=== PATIENT | female | born 1985 | race Native Hawaiian/Other Pacific Islander ===

== ENCOUNTER 2016-11-01 17:18 | Emergency (ER) | payer OTHER, MEDICAID ==
[2016-11-01 17:44] VITALS: BMI 29.2
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
== END 2016-11-01 18:21 | disposition home or self-care (01) ==
LOC: H.EROB2 17:18
DX: O47.03 False labor before 37 completed weeks of gestation, third trimester (principal); Z3A.35 35 weeks gestation of pregnancy

== ENCOUNTER 2016-12-06 06:54 | Inpatient (IN) | payer MEDICAID, OTHER ==
[2016-12-06 08:19] VITALS: BMI 31.1
[2016-12-06] MEDS: Lactated Ringer's 1,000 ML IV SCH ×3 (08:50→21:33)
[2016-12-06] MEDS ORDERED: Nalbuphine 20 mg/ml Inj (1 ml) IVP ONE (09:00)
--- NOTE | 2016-12-06 09:16 | OBADHP ---
Datetime: 12/06/2016 08:15 Admit Comment, IP Provider: IUP at 40w c/o CTX pain. No SROM. No VB. +FM. She had mucous plu g come out yesterday. POBGYNH: TOP x 2; MSVD x 1 PMH denies PSH miguel NKA PSoH denies smoking ETOH drugs A: IUP at 40w Painful CTX early labor PLAN: discussion with pt about labor, pain medication, delivery and . She udnerstands. She wants pain medicaton and admission for delivery Pelvic Type - PN: Adequate Extremities - PN: Normal Abdomen - PN: Normal Back - PN: Normal Breast - PN: Not Done Lungs - PN: Normal Heart - PN: Normal Thyroid - PN: Normal Neurologic - PN: Normal HEENT - PN: Normal General - PN: Normal Presentation-Admit: Vertex FHR - Baseline A Provider: 120 Comments, ACOG Physical Exam: ROS: Geneeral no weakness; no fatigue HEENT: No OBRIEN; no visual dist Resp: No SOB; no Cough CV: NO CP; no palpitations GI: No N/V/D : No F/U/D MS: NO joint pain Pool Provider: Negative IP Hx Assessment: The History has been Reviewed and is Current Vital Signs Provider: Reviewed; Within Normal Limits IP Chief Complaint: Uterine contractions NICHD Variability Prov Fetus A: Moderate 6-25bpm FHR Category Provider Fetus A: Category I NICHD Decel Fetus A IP Provider: None Dilatation, Provider: 1 Effacement, Provider: 50 Station, Provider: -2 Genitourinary Exam: Normal DTRs - PN: Normal EGA AdmitDate IP: 40.3 IP Adm Impression: Term, intrauterine IP Admit Plan: Admit to unit; Initiate labor protocol Datetime: 11/20/2016 04:11 IP Chief Complaint Other: perineal pressure Contraction Comments Provider: no NICHD Accel Fetus A IP Provider: 15X15 Datetime: 11/01/2016 18:15 Membranes, Provider: Intact
[2016-12-06 10:07] LABS: HEMATOCRIT 38.2 % (34.0-47.0); MEAN CELL VOLUME 91.5 fl (81.0-99.0); MEAN CORPUSCULAR HEMOGLOBIN 29.8 pg (27.0-31.0); MEAN CORPUSCULAR HGB CONC 32.6 g/dL (33.0-37.0); RED CELL DISTRIBUTION WIDTH 14.2 % (11.5-14.5); WHITE BLOOD COUNT 15.8 K/uL (4.8-10.8)
--- NOTE | 2016-12-06 10:32 | OBPN ---
Datetime: 12/06/2016 10:29 IP Progress Impression: Normal progression of labor; Reassuring heart rate IP Informed Consent Obtain: Vaginal Delivery; Risks, Benefits and Alternatives Discussed IP Procedures: Artificial ROM IP Progress Plan: Continue present management; Augmentation Pool Provider: Negative Membranes, Provider: Ruptured Amniotic Fluid Color, Provider: Clear FHR - Baseline A Provider: 125 IP Fetus A Comments: Sono cephalic Presentation-Admit: Vertex IP Progress Note Comment: She feels more pain. She is just getting Nubain now. SVE 1-2cm ASSESSMENT: latent phase of labor PLAN: AROM clear fluid nubain IV; augmentation with Pitocin discussed NICHD Accel Fetus A IP Provider: 15X15 FHR Category Provider Fetus A: Category I NICHD Variability Prov Fetus A: Moderate 6-25bpm Dilatation, Provider: 1-2 Effacement, Provider: 80 Station, Provider: -1 NICHD Decel Fetus A IP Provider: None Datetime: 12/06/2016 08:15 Vital Signs Provider: Reviewed; Within Normal Limits Datetime: 11/20/2016 04:11 Contraction Comments Provider: no
[2016-12-06 10:50] VITALS: BP 113/78; PULSE 78; RESP 18; TEMP 98; O2SAT 100
[2016-12-06] MEDS ORDERED: Oxytocin 30 units/LR 500ML 30 U/500 ML BAG IV ONE (12:34)
[2016-12-06] MEDS ORDERED: Lactated Ringer's 1,000 ML IV SCH (12:45)
[2016-12-06] MEDS ORDERED: Fentanyl/Bupivacaine HCl 250 ML EPI ONE (13:58)
[2016-12-06] MEDS ORDERED: Lidocaine 2% Inj (20ml) ONE (16:52)
--- NOTE | 2016-12-06 18:58 | OBPN ---
Datetime: 12/06/2016 18:50 IP Progress Impression: Reassuring heart rate IP Informed Consent Obtain: Vaginal Delivery; Risks, Benefits and Alternatives Discussed IP Procedures: Intrauterine Pressure Catheter IP Progress Plan: Continue present management; Augmentation FHR - Baseline A Provider: 135 Presentation-Admit: Vertex IP Progress Note Comment: Notified earlier that she was 7cm at 16:15pm...and 8cm at 18:00pm. She mcgee d Pitocin started at 2miu/h...noww at 4miu/h. CTX q 2-3m...SVE by dc 6-7cm 90% 0 station...IUPC placed to better monitor TCX intensity Vital Signs Provider: Reviewed; Within Normal Limits NICHD Accel Fetus A IP Provider: 15X15 FHR Category Provider Fetus A: Category I NICHD Variability Prov Fetus A: Moderate 6-25bpm Dilatation, Provider: 6-7 Effacement, Provider: 90 Station, Provider: 0 NICHD Decel Fetus A IP Provider: None
[2016-12-07] MEDS ORDERED: ceFAZolin 2 GM in Sodium Chloride 0.9% 100 ML IVPB ONE (01:33)
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
[2016-12-07] MEDS ORDERED: Absorbable Gelatin Sponge Size 12-7 ONE (02:45)
[2016-12-07] MEDS ORDERED: Morphine 1 mg/ml preservative-free Inj(Duramorph) ONE (02:55)
[2016-12-07] MEDS ORDERED: Oxycodone/Acetaminophen 5/325 mg Tab PO PRN ×3 (03:12→11:03)
[2016-12-07] MEDS ORDERED: Oxytocin 30 units/LR 500ML 30 U/500 ML BAG IV ONE (03:45)
[2016-12-07] MEDS ORDERED: DiphenhydrAMINE 50 mg/ml Inj IVP PRN ×2 (07:16→11:03)
[2016-12-07] MEDS ORDERED: Prenatal Multivit/Folic Acid/Iron Tab PO SCH (09:00)
[2016-12-07] MEDS ORDERED: Lactated Ringer's 1,000 ML IV SCH (11:03)
--- NOTE | 2016-12-07 14:40 | OBDS ---
DELIVERY PERSONNEL Delivery Doctor: Srikanth Hu DO Verify Rep: Cecilia Posada RN Anesthesiologist: mark anthony BABIN Resident: Brenden Clayton MD MATERNAL INFORMATION Delivery Anesthesia: Epidural Medications in Delivery: pitocin 30/500, pit, ancef 2 grams, methergine Estimated Blood Loss (ml): 1000 Placenta Cultured: No Maternal Complications: None RN Comments: DC IUP in OR as per md and pt tolerated procedure well. Methergine given left arm IM as per md order and pt tolerated well Provider Comments: Pre Op Dx: IUP at term/failure to dilate Post Op Dx: same; one loose nuchal cord; uterine atony Procedure: Primary LTCS via Pfannenstiel incision Surgeon Dr Hu Asst: Dr Oshea PGY1 Anesth: Dr Iverson Anesth: epidural Findings: -Live infant male delivered from [facility] presentation -loose nichal cord x 1 -clear AF -placenta delivered intact manually -Uterine atony (Methergine given) - 9,9 She remained stable EBL 1000cc - LABOR SUMMARY EDC: 12/03/2016 00:00 No. Babies in Womb: 1 Attempted: No Labor Anesthesia: Epidural LABOR INFORMATION Reason for Induction: Not Applicable Onset of Labor: 12/06/2016 04:00 Oxytocin: Augmentation Group B Beta Strep: Negative Antibiotics # of Doses: none Antibiotics Time of Last Dose: n/a Steroids Given: None Reason Steroids Not Administered: Not Applicable MEMBRANES Membranes Rupture Method: Artificial Rupture of Membranes: 12/06/2016 10:26 Length of Rupture (hrs): 16.00 Amniotic Fluid Color: Clear Amniotic Fluid Amount: Moderate Amniotic Fluid Odor: Normal STAGES OF LABOR Stage 3 hrs: 0 Stage 3 min: 1 Total Time in Labor hrs: 22 Total Time in Labor min: 27 VAGINAL DELIVERY Episiotomy: None Laceration Extension: N/A Laceration Type: None Laceration Repair: Not Applicable Sponge Count Correct: N/A CSECTION DELIVERY Primary Indication: Secondary Arrest of Dilatation CSection Urgency: Elective CSection Incidence: Primary Labor: Labor Elective: Elective CSection Incision: Lower Uterine Transverse BABY A INFORMATION Infant Delivery Date/Time: 12/07/2016 02:26 Method of Delivery: Born in Route : No : N/A Forceps: N/A Vacuum Extraction: N/A Shoulder Dystocia : No SHOULDER DYSTOCIA BABY A Infant Delivery Date/Time: 12/07/2016 02:26 PRESENTATION/POSITION BABY A Presentation: Cephalic Cephalic Presentation: Vertex Breech Presentation: N/A PLACENTA INFORMATION BABY A Placenta Delivery Time : 12/07/2016 02:27 Placenta Method of Delivery: Manual Removal Placenta Status: Delivered SCORES BABY A Heart Rate 1 min: >100 bpm Resp Effort 1 min: Good Cry Reflex Irritability 1 min: Cough or Sneeze or Pulls Away Muscle Tone 1 min: Active Motion Color 1 min: Body [place], Extremities Blue Resuscitation Effort 1 min: N/A SCORE 1 MIN: 9 Heart Rate 5 min: >100 bpm Resp Effort 5 min: Good Cry Reflex Irritability 5 min: Cough or Sneeze or Pulls Away Muscle Tone 5 min: Active Motion Color 5 min: Body [place], Extremities Blue Resuscitation Effort 5 min: N/A SCORE 5 MIN: 9 INFORMATION BABY A Gestational Age at Delivery: 40.3 Gestational Status: Term Outcome : Liveborn Condition : Stable Sex: Male IDENTIFICATION/MEDS BABY A ID Band Number: [id number] ID Band Location: Left Leg; Left Arm WEIGHT/LENGTH BABY A Infant Birthweight (gms): 3980 Infant Weight (lb): 8 Weight (oz): 12 Length Inches: 21.25 Infant Length cms: 54.0 CORD INFORMATION BABY A No. Cord Vessels: 3 Nuchal Cord : Around Neck x1, Loose True Knot: none Cord Blood Taken: Yes Suction: Mouth; Nose ASSESSMENT BABY A Infant Complications: None Physical Findings at Delivery: Within Normal Limits Infant Respirations: Appears Normal Lift Truck Operator/ALS Called : No Infant Care By: Dr Kumar Transferred To: Nursery
--- NOTE | 2016-12-07 14:41 | OBDS ---
DELIVERY PERSONNEL Delivery Doctor: Srikanth Hu DO Supervisor Rose Grading: Cecilia Posada RN Anesthesiologist: mark anthony BABIN Resident: Brenden Clayton MD MATERNAL INFORMATION Delivery Anesthesia: Epidural Medications in Delivery: pitocin 30/500, pit, ancef 2 grams, methergine Estimated Blood Loss (ml): 1000 Placenta Cultured: No Maternal Complications: None RN Comments: DC IUP in OR as per md and pt tolerated procedure well. Methergine given left arm IM as per md order and pt tolerated well Provider Comments: Pre Op Dx: IUP at term/failure to dilate Post Op Dx: same; one loose nuchal cord; uterine atony Procedure: Primary LTCS via Pfannenstiel incision Surgeon Dr Hu Asst: Dr Oshea PGY1 Anesth: Dr Iverson Anesth: epidural Findings: -Live infant male delivered from [facility] presentation -loose nichal cord x 1 -clear AF -placenta delivered intact manually -Uterine atony (Methergine given) - 9,9 She remained stable EBL 1000cc - LABOR SUMMARY EDC: 12/03/2016 00:00 No. Babies in Womb: 1 Attempted: No Labor Anesthesia: Epidural LABOR INFORMATION Reason for Induction: Not Applicable Onset of Labor: 12/06/2016 04:00 Oxytocin: Augmentation Group B Beta Strep: Negative Group B Beta Strep: Negative Antibiotics # of Doses: none Antibiotics Time of Last Dose: n/a Steroids Given: None Reason Steroids Not Administered: Not Applicable MEMBRANES Membranes Rupture Method: Artificial Membranes Rupture Method: Artificial Membranes Rupture Method: Artificial Membranes Rupture Method: Artificial Membranes Rupture Method: Artificial Membranes Rupture Method: Artificial Membranes Rupture Method: Artificial Membranes Rupture Method: Artificial Membranes Rupture Method: Artificial Membranes Rupture Method: Artificial Membranes Rupture Method: Artificial Membranes Rupture Method: Artificial Membranes Rupture Method: Artificial Membranes Rupture Method: Artificial Membranes Rupture Method: Artificial Membranes Rupture Method: Artificial Membranes Rupture Method: Artificial Membranes Rupture Method: Artificial Membranes Rupture Method: Artificial Membranes Rupture Method: Artificial Membranes Rupture Method: Artificial Membranes Rupture Method: Artificial Membranes Rupture Method: Artificial Membranes Rupture Method: Artificial Membranes Rupture Method: Artificial Membranes Rupture Method: Artificial Membranes Rupture Method: Artificial Membranes Rupture Method: Artificial Membranes Rupture Method: Artificial Membranes Rupture Method: Artificial Membranes Rupture Method: Artificial Membranes Rupture Method: Artificial Rupture of Membranes: 12/06/2016 10:26 Length of Rupture (hrs): 16.00 Amniotic Fluid Color: Clear Amniotic Fluid Color: Clear Amniotic Fluid Color: Clear Amniotic Fluid Color: Clear Amniotic Fluid Color: Clear Amniotic Fluid Color: Clear Amniotic Fluid Color: Clear Amniotic Fluid Color: Clear Amniotic Fluid Color: Clear Amniotic Fluid Color: Clear Amniotic Fluid Color: Clear Amniotic Fluid Color: Clear Amniotic Fluid Color: Clear Amniotic Fluid Color: Clear Amniotic Fluid Color: Clear Amniotic Fluid Color: Clear Amniotic Fluid Color: Clear Amniotic Fluid Color: Clear Amniotic Fluid Color: Clear Amniotic Fluid Color: Clear Amniotic Fluid Color: Clear Amniotic Fluid Color: Clear Amniotic Fluid Color: Clear Amniotic Fluid Color: Clear Amniotic Fluid Color: Clear Amniotic Fluid Color: Clear Amniotic Fluid Color: Clear Amniotic Fluid Color: Clear Amniotic Fluid Color: Clear Amniotic Fluid Color: Clear Amniotic Fluid Color: Clear Amniotic Fluid Color: Clear Amniotic Fluid Amount: Moderate Amniotic Fluid Amount: Moderate Amniotic Fluid Amount: Moderate Amniotic Fluid Amount: Moderate Amniotic Fluid Amount: Moderate Amniotic Fluid Amount: Moderate Amniotic Fluid Amount: Moderate Amniotic Fluid Amount: Moderate Amniotic Fluid Amount: Moderate Amniotic Fluid Amount: Moderate Amniotic Fluid Amount: Moderate Amniotic Fluid Amount: Moderate Amniotic Fluid Amount: Moderate Amniotic Fluid Amount: Moderate Amniotic Fluid Amount: Moderate Amniotic Fluid Amount: Moderate Amniotic Fluid Amount: Moderate Amniotic Fluid Amount: Moderate Amniotic Fluid Amount: Moderate Amniotic Fluid Amount: Moderate Amniotic Fluid Amount: Moderate Amniotic Fluid Amount: Moderate Amniotic Fluid Amount: Moderate Amniotic Fluid Amount: Moderate Amniotic Fluid Amount: Moderate Amniotic Fluid Amount: Moderate Amniotic Fluid Amount: Moderate Amniotic Fluid Amount: Moderate Amniotic Fluid Amount: Moderate Amniotic Fluid Amount: Moderate Amniotic Fluid Amount: Moderate Amniotic Fluid Amount: Moderate Amniotic Fluid Odor: Normal Amniotic Fluid Odor: Normal Amniotic Fluid Odor: Normal Amniotic Fluid Odor: Normal Amniotic Fluid Odor: Normal Amniotic Fluid Odor: Normal Amniotic Fluid Odor: Normal Amniotic Fluid Odor: Normal Amniotic Fluid Odor: Normal Amniotic Fluid Odor: Normal Amniotic Fluid Odor: Normal Amniotic Fluid Odor: Normal Amniotic Fluid Odor: Normal Amniotic Fluid Odor: Normal Amniotic Fluid Odor: Normal Amniotic Fluid Odor: Normal Amniotic Fluid Odor: Normal Amniotic Fluid Odor: Normal Amniotic Fluid Odor: Normal Amniotic Fluid Odor: Normal Amniotic Fluid Odor: Normal Amniotic Fluid Odor: Normal Amniotic Fluid Odor: Normal Amniotic Fluid Odor: Normal Amniotic Fluid Odor: Normal Amniotic Fluid Odor: Normal Amniotic Fluid Odor: Normal Amniotic Fluid Odor: Normal Amniotic Fluid Odor: Normal Amniotic Fluid Odor: Normal Amniotic Fluid Odor: Normal Amniotic Fluid Odor: Normal STAGES OF LABOR Stage 3 hrs: 0 Stage 3 min: 1 Total Time in Labor hrs: 22 Total Time in Labor min: 27 VAGINAL DELIVERY Episiotomy: None Laceration Extension: N/A Laceration Type: None Laceration Repair: Not Applicable Sponge Count Correct: N/A CSECTION DELIVERY Primary Indication: Secondary Arrest of Dilatation CSection Urgency: Elective CSection Incidence: Primary Labor: Labor Elective: Elective CSection Incision: Lower Uterine Transverse BABY A INFORMATION Delivery Date/Time: 12/07/2016 02:26 Method of Delivery: Method of Delivery: Vaginal Born in Route : No : N/A Forceps: N/A Vacuum Extraction: N/A Shoulder Dystocia : No SHOULDER DYSTOCIA BABY A Delivery Date/Time: 12/07/2016 02:26 PRESENTATION/POSITION BABY A Presentation: Cephalic Presentation: Cephalic Presentation: Cephalic Presentation: Cephalic Presentation: Cephalic Cephalic Presentation: Vertex Breech Presentation: N/A PLACENTA INFORMATION BABY A Placenta Delivery Time : 12/07/2016 02:27 Placenta Method of Delivery: Manual Removal Placenta Status: Delivered SCORES BABY A Heart Rate 1 min: >100 bpm Resp Effort 1 min: Good Cry Reflex Irritability 1 min: Cough or Sneeze or Pulls Away Muscle Tone 1 min: Active Motion Color 1 min: Body [place], Extremities Blue Resuscitation Effort 1 min: N/A SCORE 1 MIN: 9 Heart Rate 5 min: >100 bpm Resp Effort 5 min: Good Cry Reflex Irritability 5 min: Cough or Sneeze or Pulls Away Muscle Tone 5 min: Active Motion Color 5 min: Body [place], Extremities Blue Resuscitation Effort 5 min: N/A SCORE 5 MIN: 9 INFANT INFORMATION BABY A Gestational Age at Delivery: 40.3 Gestational Status: Term Infant Outcome : Liveborn Infant Condition : Stable Sex: Male IDENTIFICATION/MEDS BABY A ID Band Number: [id number] ID Band Location: Left Leg; Left Arm WEIGHT/LENGTH BABY A Birthweight (gms): 3980 Weight (lb): 8 Infant Weight (oz): 12 Infant Length Inches: 21.25 Length cms: 54.0 CORD INFORMATION BABY A No. Cord Vessels: 3 Nuchal Cord : Around Neck x1, Loose True Knot: none Cord Blood Taken: Yes Suction: Mouth; Nose ASSESSMENT BABY A Complications: None Physical Findings at Delivery: Within Normal Limits Infant Respirations: Appears Normal Java Architect/ALS Called : No Care By: Dr Kumar Transferred To: Nursery
[2016-12-07 16:25] LABS: HEMATOCRIT 23.8 % (34.0-47.0); MEAN CELL VOLUME 91.2 fl (81.0-99.0); MEAN CORPUSCULAR HEMOGLOBIN 31.4 pg (27.0-31.0); MEAN CORPUSCULAR HGB CONC 34.4 g/dL (33.0-37.0); RED CELL DISTRIBUTION WIDTH 14.2 % (11.5-14.5); WHITE BLOOD COUNT 22.1 K/uL (4.8-10.8)
[2016-12-07] MEDS: Oxycodone/Acetaminophen 5/325 mg Tab PO PRN (20:55)
[2016-12-08] MEDS: Prenatal Multivit/Folic Acid/Iron Tab PO SCH (08:23)
[2016-12-08] MEDS: Oxycodone/Acetaminophen 5/325 mg Tab PO PRN ×2 (11:19→20:35)
[2016-12-08 12:27] LABS: HEMATOCRIT 24.9 % (34.0-47.0); MEAN CELL VOLUME 92.2 fl (81.0-99.0); MEAN CORPUSCULAR HEMOGLOBIN 30.4 pg (27.0-31.0); RED CELL DISTRIBUTION WIDTH 14.6 % (11.5-14.5); WHITE BLOOD COUNT 24.9 K/uL (4.8-10.8)
--- NOTE | 2016-12-08 19:17 | OBPPN ---
Datetime: 12/08/2016 19:13 PP Pain Prov: Within normal limits PP Nausea Prov: Denies PP Flatus Prov: Yes PP Breasts Prov: Normal PP Heart Prov: Normal PP Lungs Prov: Normal PP Abdomen/Uterus Prov: Normal PP Lochia Prov: Normal PP Vulva/Perineum Prov: Normal PP CVA Tenderness Prov: Normal PP Extremities Prov: Normal PP C/S Incision Prov: Normal PP Progress Prov: Normal PP Comments Phys Exam Prov: Incision clean, dry, intact. Uterus firm, below umbilicus No deep calf tenderness bilaterally PP Impression Prov: Normal progression PP Plan Prov: Continue present management PP Progress Note Prov: Postoperative #1 status post primary , recovering well, no clinical symptoms of anemia Postoperative CBC Regular diet Early ambulation Lou out, patient voiding well consultation IP PP Procedures: None Vital Signs Provider PP: Reviewed; Within Normal Limits Datetime: 12/07/2016 14:30 PP Pain Prov comment: NO dizziness PP BM Prov: No IP PP Procedures Comments: CBC today
[2016-12-09] MEDS: Oxycodone/Acetaminophen 5/325 mg Tab PO PRN ×2 (08:22→17:00)
[2016-12-09] MEDS: Prenatal Multivit/Folic Acid/Iron Tab PO SCH (08:26)
--- NOTE | 2016-12-09 12:08 | OBPPN ---
Datetime: 12/09/2016 11:53 PP Pain Prov: Within normal limits PP Nausea Prov: Denies PP Flatus Prov: Yes PP Breasts Prov: Normal PP Heart Prov: Normal PP Lungs Prov: Normal PP Abdomen/Uterus Prov: Normal PP Lochia Prov: Normal PP Vulva/Perineum Prov: Normal PP CVA Tenderness Prov: Normal PP Extremities Prov: Normal PP Comments Phys Exam Prov: Fundus firm under umbilicus Incision clean/dry/intact PP Impression Prov: Normal progression PP Plan Prov: Continue present management PP Progress Note Prov: Patient denies CP, no SOB, no N/V, tolerating PO diet, ambulating/voiding wel l, mild lochia, abdominal pain tolerable with meds, +flatus, no BM A/P POD #2 1. Patient doing well, asymptomatic. Continue reg diet 2. Percocet/Motrin prn pain 3. Colace prn constipation 4. Encourage ambulation/ IP PP Procedures: None Vital Signs Provider PP: Reviewed; Within Normal Limits
[2016-12-10] MEDS: Prenatal Multivit/Folic Acid/Iron Tab PO SCH (08:12)
--- NOTE | 2016-12-10 11:04 | OBPPN ---
Datetime: 12/10/2016 10:52 PP Pain Prov: Within normal limits PP Nausea Prov: Denies PP Flatus Prov: Yes PP BM Prov: No PP Breasts Prov: Normal PP Heart Prov: Normal PP Lungs Prov: Normal PP Abdomen/Uterus Prov: Normal PP Lochia Prov: Normal PP Vulva/Perineum Prov: Normal PP CVA Tenderness Prov: Normal PP Extremities Prov: Normal PP C/S Incision Prov: Normal PP Impression Prov: Normal progression PP Plan Prov: Discharge PP Progress Note Prov: She feels fine...EPDS 12 (awaiting social service consult) A: S/P C/S day 3 Anemia - will give Fe Dulcolax supp...dicshagre when cleared IP PP Procedures: None Vital Signs Provider PP: Reviewed; Within Normal Limits
--- NOTE | 2016-12-11 19:08 | OP ---
PROCEDURE DATE: 12/07/2016 PREOPERATIVE DIAGNOSES: 1. Intrauterine at full term. 2. Failure to dilate. POSTOPERATIVE DIAGNOSES: 1. Intrauterine at full term. 2. Failure to dilate. 3. One loose nuchal cord. 4. Uterine atony. PROCEDURE: Primary low transverse section via Pfannenstiel incision. SURGEON: Darrius Hu DO. PROMOTIONS OFFICER: Dr. Oshea, PGY-1. ANESTHESIOLOGIST: Dr. Negrete. ANESTHESIA: Epidural. OPERATIVE FINDINGS: Live male delivered from a cephalic presentation, 1 loose nuchal cord noted. Clear amniotic fluid noted. Placenta was delivered intact manually. Uterine atony was noted. Methergine 0.2 mg IM was given intraoperatively. scores were 9 and 9 given at 1 and 5 minutes respectively. She remained hemodynamically stable throughout the procedure. BLOOD LOSS: 1000 mL DESCRIPTION OF PROCEDURE: The patient was brought to the operating room. She had an indwelling Lou catheter in place. She was placed in a supine position. Compression boots were placed on both lower extremities. She was then draped and prepped in the usual sterile manner. Once adequate anesthesia was obtained, a Pfannenstiel incision was made using a scalpel. This incision was then taken down to underlying fascia using electrocautery. The incision was made on the fascia using electrocautery and extended bilaterally. Inferior aspect of the fascia was grasped using 2 Mehul clamps and tented up, and the rectus muscle was both bluntly and sharply dissected using electrocautery. The same was done with the superior aspect of the fascia. In the midline superiorly , the rectus muscle was bluntly. Peritoneum was identified and this was tented up using 2 Matilde clamps and incised using Metzenbaum scissors and the incision was then extended superiorly and inferiorly with direct visualization of the bladder and intestines. Bladder blade was then inserted. Two wet lap pads were placed on the pericolic gutters. An incision was made above the bladder line on the peritoneum and then extended bilaterally using Metzenbaum scissors. Bladder flap was created digitally. Bladder blade was then inserted behind the bladder flap. A low transverse incision was made using a scalpel. Upon entering the uterus, clear amniotic fluid was noted. This incision was then extended bilaterally using bandage scissors. Thereafter , the head was delivered as atraumatically as possible. Infant was bulb suctioned nasopharyngeally. One loose nuchal cord was noted and reduced. The remainder of the was then delivered as atraumatically as possible. Cord was clamped and cut. was shown to the mother and given to the boiler operators supervisor in attendance. Cord bloods were obtained. The placenta was then delivered intact manually. Uterus was noted to be boggy and atony noted. IV Pitocin given. Massage was done on the uterus. Uterine atony still noted, 0.2 mg of Methergine was given by Dr. Negrete after blood pressure was noted. Good contract of the uterus was noted. The lower uterine segment was identified and grasped using T clamps and Allises. 0 Vicryl suture was used to close the first layer of the uterus in interlocking fashion. Second layer of the uterus was closed using 0 Vicryl suture imbricating the first layer also in an interlocking fashion. Hemostasis was assured on the incision site. Posterior cul-de-sac was noted to be cleared of debris and clots. Uterus placed back into peritoneal cavity. Lap pads were removed. Irrigation was performed. Some bleeding was noted on the edge of the bladder flap. Hemostasis was assured using electrocautery, also underneath the bladder flap Gelfoam x 1 was placed on the left side. After hemostasis assured, all equipment was removed and accounted for, 0 Vicryl suture was then used to approximate the peritoneum in a running fashion. Rectus muscle was noted to have good hemostasis. 0 Vicryl suture was used to approximate the fascia in a running fashion. Irrigation was performed. Subcuticular layer was assured with hemostasis using electrocautery. 2-0 plain suture was used to approximate the subcuticular layer x 3, 3-0 Vicryl suture on a Jatin needle was used to approximate the skin. Dermabond was applied, pressure bandage and Steri-Strips placed. All equipment was removed and accounted for. ESTIMATED BLOOD LOSS: 1000 mL. Postoperatively, she was brought to the recovery room in stable condition. We will check CBC, blood count in 12 hours. Darrius Hu DO cc: 135 TT: 12/11/2016 19:07:45 jn REJI
== END 2016-12-10 16:00 | disposition home or self-care (01) | DRG 371 ==
LOC: H.EROB2 06:54 → H.EROB 08:33 → H.L&D 10:00 → H.OB/GYN 12-07 09:45
PROVIDERS: ADMIT Obstetrics & Gynecology; ATTEND Obstetrics & Gynecology
PROC: 4A1HXCZ Monitoring of Products of Conception, Cardiac Rate, External Approach (ICD-10-PCS; 2016-12-06)
PROC: 10D00Z1 Extraction of Products of Conception, Low, Open Approach (ICD-10-PCS; principal; 2016-12-07)
DX: O66.9 Obstructed labor, unspecified (principal); O48.0 Post-term pregnancy; Z37.0 Single live birth; Z3A.40 40 weeks gestation of pregnancy; O69.81X0 Labor and delivery complicated by cord around neck, without compression, not applicable or unspecified; O62.2 Other uterine inertia

== ENCOUNTER 2017-02-10 15:17 | Emergency (ER) | payer MEDICAID, OTHER ==
[2017-02-10 15:17] VITALS: BMI 31.1
[2017-02-10 15:29] VITALS: PULSE 86
[2017-02-10] MEDS ORDERED: Sodium Chloride 0.9% 1,000 ML IV STA (16:25)
[2017-02-10 17:02] LABS: BASO % 0.2 % (0.0-2.0); EOS # 0.2 K/uL (0.0-0.7); EOS % 1.8 % (0.0-4.0); HEMATOCRIT 39.6 % (34.0-47.0); LYMPH # 1.4 K/uL (1.0-4.3); LYMPH % 11.5 % (20.0-40.0); MEAN CORPUSCULAR HEMOGLOBIN 29.2 pg (27.0-31.0); MEAN CORPUSCULAR HGB CONC 33.6 g/dL (33.0-37.0); MEAN PLATELET VOLUME 7.8 fl (7.2-11.7); MONO # 0.8 K/uL (0.0-0.8); MONO % 6.9 % (0.0-10.0); NEUT # 9.5 K/uL (1.8-7.0); NEUT % 79.6 % (50.0-75.0); RED CELL DISTRIBUTION WIDTH 12.5 % (11.5-14.5); WHITE BLOOD COUNT 11.9 K/uL (4.8-10.8)
[2017-02-10 17:21] LABS: ALB/GLOB RATIO 1.2 (1.0-2.1); ALKALINE PHOSPHATASE 97 U/L (38-126); ALT/SGPT 18 U/L (9-52); AST/SGOT 28 U/L (14-36); BILIRUBIN,TOTAL 0.4 mg/dl (0.2-1.3); BLOOD UREA NITROGEN 11 mg/dl (7-17); CALCIUM 9.4 mg/dL (8.4-10.2); CARBON DIOXIDE 23 mmol/L (22-30); CHLORIDE 107 mmol/L (98-107); GFR AFRICAN-AMERICAN > 60; GLUCOSE,RANDOM 89 mg/dL (65-105); POTASSIUM 3.8 MMOL/L (3.6-5.0); SODIUM 140 mmol/l (132-148); TOTAL PROTEIN 7.9 G/DL (6.3-8.2)
[2017-02-10 17:40] LABS: VENOUS BLOOD GAS BASE EXCESS -1.3 mmol/L (0.0-2.0); VENOUS BLOOD GAS PCO2 40 mmHg (40-60); VENOUS BLOOD PH 7.38 (7.32-7.43)
--- NOTE | 2017-02-10 17:57 | ED PDOC ---
HPI: Fever Fever Onset Was: 02/08/17 The Fever Was Measured: Oral Recent Sick Contacts: No Additional Comments: Pt 2 months post . Pt reports a few days or left sided breast pain and fever up to 101.4. Pt reports Pt states she is not having cough, sore throat, ear pain, dysuria. Pt states she called Dr. Hu and was told to come to the ER for evaluation. Past Medical History Reviewed: Historical Data, Nursing Documentation, Vital Signs Vital Signs: Last Vital Signs Temp 100.3 F H 02/10/17 15:25 Pulse 86 02/10/17 15:25 Resp 18 02/10/17 15:25 BP 108/67 02/10/17 15:25 Pulse Ox 99 02/10/17 18:14 - Medical History PMH: No Chronic Diseases - Surgical History Surgical History: No Surg Hx - Family History Family History: States: No Known Family Hx - Living Arrangements Living Arrangements: With Family - Social History Current smoker - smoking cessation education provided: No Alcohol: None - Home Medications Home Medications: Ambulatory Orders Medication Instructions Recorded Vit No.126/Iron/Folic 1 tab PO DAILY 12/06/16 [Classic Tablet] Ferrous Sulfate [Feosol] 325 mg PO TID #90 tab 12/10/16 Ibuprofen [Motrin] 600 mg PO Q6H PRN #30 tab 12/10/16 Multivit/Folic Acid/I 1 tab PO DAILY tab 12/10/16 [] oxyCODONE/Acetaminophen [Percocet 1 ea PO Q4H PRN #30 tab 12/10/16 5/325 mg Tab] Dicloxacillin [Dynapen] 500 mg PO Q6H #40 cap 02/10/17 - Allergies Allergies/Adverse Reactions: Allergies Allergy/AdvReac Type Severity Reaction Status Date / Time No Known Allergies Allergy Verified 02/10/17 15:24 Review of Systems ROS Statement: Except As Marked, All Systems Reviewed And Found Negative Constitutional: Positive for: Fever, Chills, Other (pain with ) ENT: Negative for: Ear Pain, Throat Pain Respiratory: Negative for: Cough Genitourinary Female: Negative for: Dysuria Physical Exam - Reviewed Nursing Documentation Reviewed: Yes Vital Signs Reviewed: Yes - Physical Exam Appears: Positive for: Well, Non-toxic, No Acute Distress Head Exam: Positive for: ATRAUMATIC, NORMAL INSPECTION, NORMOCEPHALIC Skin: Positive for: Warm. Negative for: Normal Color ((+) erythema of the left breast with blanching ) Eye Exam: Positive for: EOMI, Normal appearance, PERRL ENT: Positive for: Normal ENT Inspection Neck: Positive for: Normal, Painless ROM Cardiovascular/Chest: Positive for: Regular Rate, Rhythm Respiratory: Positive for: CNT, Normal Breath Sounds Gastrointestinal/Abdominal: Positive for: Normal Exam, Bowel Sounds, Soft Back: Positive for: Normal Inspection Extremity: Positive for: Normal ROM Neurologic/Psych: Positive for: Alert, Oriented - Laboratory Results Result Diagrams: 02/10/17 16:58 02/10/17 04:30 - ECG O2 Sat by Pulse Oximetry: 99 (RA) Pulse Ox Interpretation: Normal Medical Decision Making Medical Decision Making: Initial Impression: Mastitis Initial Plan: --VBG Shock Panel --Comp metabolic panel --CBC w/ differential --Motrin Tab 600 mg PO --NS IV 1,000 ml at 500 mls/hr --Blood culture and gram stain --Wound culture --Breast Limited LT [US] Discussed with Dr. Sloan. Breast milk cultured. Time: 19:09 FINDINGS: There is no evidence of abscess. There is a simple cyst in the 7 o'clock axis, 3 cm from the nipple, measuring 4 x 6 x 6 mm. There is no solid mass. There is an incidental left axillary lymph node, 1.2 cm in greatest dimension. IMPRESSION: No sonographic evidence of abscess in the left breast. Preliminary interpretation of this examination was reported by [facility] at 7:47 p.m. on 02/10/2017. There is concurrence of this report with the preliminary interpretation. Time: 20:41 Upon provider reevaluation patient is feeling better, is medically stable, and requires no further treatment in the ED at this time. Patient will be discharged with Rx for Dynapen. Counseling was provided and all questions were answered regarding diagnosis and need for follow up with primary care physician. There is agreement to discharge plan. Return if symptoms persist or worsen. Scribe Attestation: Documented by Kirill Meyers, acting as a scribe for Diana ESPINOZA. Provider Scribe Attestation: All medical record entries made by the Scribe were at my direction and personally dictated by me. I have reviewed the chart and agree that the record accurately reflects my personal performance of the history, physical exam, medical decision making, and the department course for this patient. I have also personally directed, reviewed, and agree with the discharge instructions and disposition. Disposition - Clinical Impression Clinical Impression: Mastitis - Patient ED Disposition Is Patient to be Admitted: No Counseled Patient/Family Regarding: Diagnosis, Need For Followup, Rx Given - Disposition Referrals: Darrius Hu DO [Staff Provider] - Disposition: Routine/Home Disposition Time: 20:22 Condition: GOOD Additional Instructions: Continue warm compresses and warm showers. Continue breast feeding or pumping especially at night. Prescriptions: Dicloxacillin [Dynapen] 500 mg PO Q6H #40 cap Instructions: Mastitis (ED)
[2017-02-10 20:43] VITALS: BP 122/78; RESP 16; TEMP 98.6
--- NOTE | 2017-02-11 12:45 | US ---
PROCEDURE: Left breast ultrasound examination HISTORY: r/u abscess COMPARISON: Not available TECHNIQUE: Examination was performed throughout the left breast. FINDINGS: There is no evidence of abscess. There is a simple cyst in the 7 o'clock axis, 3 cm from the nipple, measuring 4 x 6 x 6 mm. There is no solid mass. There is an incidental left axillary lymph node, 1.2 cm in greatest dimension. IMPRESSION: No sonographic evidence of abscess in the left breast. Preliminary interpretation of this examination was reported by [facility] at 7:47 p.m. on 02/10/2017. There is concurrence of this report with the preliminary interpretation.
[2017-02-27 16:28] VITALS: O2SAT 99
== END 2017-02-10 20:42 | disposition home or self-care (01) ==
LOC: H.ER 15:17
DX: N61.0 Mastitis without abscess (principal)
CPT/HCPCS: 76642; 80053; 81025; 82803; 85025; 87040; 87070; 99283; J7040